=== PATIENT | female | born 1960 | race Hispanic/Latino ===

== ENCOUNTER 2023-12-04 15:34 | Emergency (ER) | payer MEDICARE ==
[~2023-12-04] VITALS: Ht 167.6 cm; Wt 81.6 kg
[2023-12-04 15:54] LABS: BASOPHILS # (AUTO) 0.04 K/uL (0.00-0.20); BASOPHILS % (AUTO) 0.4 % (0.0-5.0); EOSINOPHILS # (AUTO) 0.02 K/uL (0.00-0.70); EOSINOPHILS % (AUTO) 0.2 % (0.0-8.0); HEMATOCRIT 37.8 % (36-48); IMMATURE GRANULOCYTE ABSOLUTE 0.04 K/uL (0-1); LYMPHOCYTES % (AUTO) 42.1 % (21.0-51.0); MEAN CORPUSCULAR HEMOGLOBIN 30.1 pg (27.0-33.0); MEAN CORPUSCULAR HGB CONC 34.7 g/dL (32.0-36.0); MEAN CORPUSCULAR VOLUME 86.9 fL (79-99); MONOCYTES # (AUTO) 0.6 K/uL (0.1-1.0); MONOCYTES % (AUTO) 6.5 % (3.0-13.0); NEUTROPHILS # (AUTO) 4.8 K/uL (1.8-7.7); NEUTROPHILS % (AUTO) 50.4 % (40.0-77.0); PLATELET COUNT (AUTO) 168 K/uL (130-400); RED BLOOD CELL COUNT(AUTO) 4.35 MIL/uL (4.00-5.50); RED CELL DISTRIBUTION WIDTH 12.7 % (11.0-15.5); WHITE BLOOD COUNT (AUTO) 9.5 K/uL (4.8-10.8)
[2023-12-04 16:04] LABS: CREATININE 0.9 mg/dL (0.5-1.0)
[2023-12-04 16:23] LABS: B-TYPE NATRIURETIC PEPTIDE 16 pg/mL (0-100)
[2023-12-04] MEDS: LORAZEPAM 2 MG/ML 1 ML VIAL IVP ONE (17:22)
[2023-12-04] MEDS: MAGNESIUM OXIDE 400 MG TABLET PO ONE (18:53)
[2023-12-04] MEDS: KCL 20 MEQ ERTAB PO ONE (18:53)
[2023-12-04] MEDS: 0.9% NACL 500ML IV.SOLN 500 ML IV ONE (18:54)
[2023-12-04 19:27] VITALS: BP 130/67; PULSE 65; RESP 18; O2SAT 98
== END 2023-12-04 19:28 | disposition home or self-care (01) ==
LOC: EDH 15:34
DX: I10 Essential (primary) hypertension (principal); R06.02 Shortness of breath; R42 Dizziness and giddiness; F41.9 Anxiety disorder, unspecified; Z98.890 Other specified postprocedural states; Z90.710 Acquired absence of both cervix and uterus
CPT/HCPCS: 99285; 96374; 71045; 84484; 80048; 83880; 85025; 36415; 93005; J2060